=== PATIENT | male | born 1985 | race Caucasian/White ===

== ENCOUNTER 2022-12-24 16:31 | Emergency (ER) | payer OTHER, SELFPAY ==
[2022-12-24 16:45] VITALS: BP 127/87; PULSE 75; RESP 16; TEMP 36.5; O2SAT 100
--- NOTE | 2022-12-24 17:12 | ED.MALEGU ---
HPI - Male Genitourinary General Chief complaint: Urogenital-Male Stated complaint: Std test Time Seen by Provider: 12/24/22 17:04 Source: patient and RN notes reviewed Mode of arrival: ambulatory Limitations: no limitations History of Present Illness HPI Narrative: Patient presents today requesting STD testing. He was notified yesterday that his tested positive for Trichomonas. He denies any current symptoms such as dysuria, penile discharge or pain, testicular pain or swelling. He would like to be tested for Trichomonas, chlamydia, gonorrhea, and would like prophylactic treatment. Related Data Allergies Allergy/AdvReac Type Severity Reaction Status Date / Time No Known Allergies Allergy Verified 12/24/22 16:40 Review of Systems Review of Systems: CONSTITUTIONAL: Denies body aches, fever, chills, or sweats. EYES: Denies visual changes, redness, or discharge. ENT: Denies rhinorrhea, congestion, sore throat, or otalgia. CARDIOVASCULAR: Denies chest pain, palpitations, or edema. RESPIRATORY: Denies cough or dyspnea. GASTROINTESTINAL: Denies abdominal pain, nausea, vomiting, or diarrhea. GENITOURINARY: Denies dysuria or hematuria. SKIN: Denies rash, itching, or wounds. MUSCULOSKELETAL: Denies back pain, joint pain, or myalgia. NEUROLOGIC: Denies headache, numbness, tingling, or weakness. PSYCH: Denies depression or anxiety. PMFSH Comments At time of signature, I have reviewed and agree with nursing past medical, surgical, social and family history unless otherwise noted. Please see nursing chart for further information. There is no relevant family history pertinent to the presenting complaint Exam Narrative: GENERAL: Well-appearing, well-nourished, and in no acute distress. HEAD: Normocephalic, atraumatic. EYES: EOMI. No redness or drainage. Conjunctivae normal. ENT: Mucous membranes pink and moist. NECK: Normal AROM. CHEST: No respiratory distress. Clear to auscultation. HEART: Regular rate and rhythm. No murmur appreciated. EXTREMITIES: Normal range of motion. No edema. SKIN: Warm, dry, no rash. Capillary refill normal. Normal skin turgor. NEURO: No focal deficits. Alert and oriented x3. Gait steady. PSYCH: Normal affect. No signs of depression or anxiety. Course Course Level of Care: Express Care Visit Vital Signs Vital signs: Vital Signs Temperature 97.7 F 12/24/22 16:45 Pulse Rate 75 12/24/22 16:45 Respiratory Rate 16 12/24/22 16:45 Blood Pressure 127/87 12/24/22 16:45 Pulse Oximetry 100 12/24/22 16:45 Temperature 97.7 F 12/24/22 16:45 Pulse Rate 75 12/24/22 16:45 Respiratory Rate 16 12/24/22 16:45 Blood Pressure 127/87 12/24/22 16:45 Pulse Oximetry 100 12/24/22 16:45 Reviewed MDM - Male Genitourinary MDM Narrative Medical decision making narrative: Labs sent. Patient prophylactically treated at [facility] with Rocephin. Prescriptions for Flagyl and doxycycline sent to pharmacy. Anticipatory guidance given. Differential Diagnosis Differential diagnosis: Likely urinary tract infection and other (Trichomonas, gonorrhea, chlamydia) Critical Care Time Critical Care Time Critical Care Time: No Discharge Plan Discharge Clinical Impression: Exposure to trichomonas, Concern about STD in male without diagnosis Patient Disposition: Home, Self-Care Condition: Stable Instructions: Antibiotic Form, Chlamydia (ED), Gonorrhea (ED), Trichomoniasis (ED) Additional Instructions: Your urine sample has been sent off to test for gonorrhea, chlamydia, and trichomonas infections. These tests can take up to 1-2 days to come back. You will be notified by telephone if any of your tests come back positive. You have been treated with Rocephin in urgent care today to cover you for gonorrhea. Prescriptions for Flagyl and doxycycline have been sent to your pharmacy to cover you for trichomonas and chlamydia. If any of your tests come back posit
[2022-12-24] MEDS: cefTRIAXone 500 MG, LIDOCAINE HCL 1% LOCAL INJ 1 ML IM (17:20)
[2022-12-24 19:56] LABS: Trichomonas Vag PCR NOT DETECTED (NOT DETECTE)
[2022-12-24 20:19] LABS: Chlamydia trachomatis NOT DETECTED (NOT DETECTE); Neisseria gonorrhoeae PCR NOT DETECTED (NOT DETECTE)
== END 2022-12-24 17:35 | disposition home or self-care (01) ==
PROVIDERS: Emergency Provider Nurse Practitioner
DX: Z20.2 Contact with and (suspected) exposure to infections with a predominantly sexual mode of transmission (principal)
CPT/HCPCS: 87491; 87591; 87661; 96372; 99213; G0463; J0696